=== PATIENT | female | born 1995 | race Caucasian/White ===

== ENCOUNTER → 2023-01-16 | Outpatient (CLI) | payer BC ==
--- NOTE | 2023-01-16 16:35 | Diagnostic Imaging Report ---
PROCEDURE: CT neck soft tissue without contrast. TECHNIQUE: Multiple contiguous axial images were obtained through the neck without the use of intravenous contrast. Auto Exposure Controls were utilized during the CT exam to meet ALARA standards for radiation dose reduction. INDICATION: Strep throat. Throat pain. Concern for left tonsillar abscess. COMPARISON: None. FINDINGS: There is soft tissue fullness within the left tonsillar bed. No organized fluid collection is identified. There is mild mass effect on the airway without evidence of airway compromise. No prevertebral or retropharyngeal fluid collections. Reactive cervical lymphadenopathy is seen bilaterally. The parotid, submandibular and thyroid gland are unremarkable. The visualized lung apices are clear. Visualized orbital contents are unremarkable. The visualized paranasal sinuses are clear. The mastoids and middle ears are clear. No acute osseous abnormality in the cervical spine. IMPRESSION: 1. Findings consistent with tonsillitis on the left. No well-formed fluid collection is seen to suggest abscess. Recommend continued close follow-up. 2. Reactive cervical lymphadenopathy bilaterally. Dictated by: Dictated on workstation # [id number]
== END ==
LOC: RAD 16:11
PROVIDERS: ATTEND Family Medicine
DX: J36 Peritonsillar abscess (principal); R59.0 Localized enlarged lymph nodes
CPT/HCPCS: 70490

== ENCOUNTER 2023-03-31 11:09 | Emergency (ER) | payer BC ==
[~2023-03-31] VITALS: Ht 177.8 cm; Wt 113.0 kg
[2023-03-31] MEDS ORDERED: MECLIZINE 25 MG (ANTIVERT) TAB PO ONE (11:30)
--- NOTE | 2023-03-31 11:34 | ED General ---
General Chief Complaint: General Problems/Pain Stated Complaint: LIGHTHEADED | DIZZY | NAUSEA Source of Information: Patient Exam Limitations: No Limitations History of Present Illness Date Seen by Provider: March 31, 2023 Time Seen by Provider: 11:32 Initial Comments Patient is a 27-year-old female who presents to the ED with dizziness, lightheadedness. This started few hours ago. Patient states she drank near a 16 ounce of iced coffee. Started feeling dizzy lightheaded initially felt like the room was spinning. Appears to be worse when she stands. She did attempt to eat a granola bar with no improvement. She felt nauseous. Similar episodes in the past after drinking coffee typically resolves fairly quick after eating. She did not eat prior. Menstrual cycle stopped yesterday. She denies chest pain, shortness of breath, cough, vomiting, diarrhea, [place] pain, unilateral muscle weakness of center changes, visual loss, ear pain, sore throat, fever, dysuria, hematuria Allergies and Home Medications Allergies Coded Allergies: No Known Drug Allergies (Unverified , 03/31/23) Patient Home Medication List Home Medication List Reviewed: Yes Review of Systems Review of Systems Constitutional: No chills, No diaphoresis, No fever; malaise, weakness EENTM: No ear pain, No blurred vision, No double vision, No mouth pain, No mouth swelling, No throat pain, No throat swelling Respiratory: No cough, No dyspnea on exertion, No short of breath Cardiovascular: No chest pain, No edema Gastrointestinal: No abdominal pain, No diarrhea; nausea; No vomiting Genitourinary: No decreased output, No discharge, No dysuria, No frequency Musculoskeletal: No back pain, No joint pain Skin: No change in color, No change in hair/nails All Other Systems Reviewed Negative Unless Noted: Yes Past Deribko-Xclona-Zaojzb Hx Patient Social History Tobacco Use?: No Use of E-Cig and/or Vaping dev: No Substance use?: No Alcohol Use?: Yes Alcohol Frequency: Couple times a week Pt feels they are or have been: No Immunizations Up To Date Influenza Vaccine Up-to-Date: Yes; Up-to-Date First/Initial COVID19 Vaccinat: X2 Second COVID19 Vaccination Nam: X2 Past Medical History Surgery/Hospitalization HX: DENIES Physical Exam Vital Signs Vital Signs - First Documented 03/31/23 11:18 Temp 36.8 Pulse 90 Resp 18 B/P (MAP) 142/84 (103) Pulse Ox 99 O2 Delivery Room Air Capillary Refill : Height, Weight, BMI Height: '" Weight: lbs. oz. kg; BMI Method: General Appearance: No Apparent Distress, WD/WN Eyes: Bilateral Eye Normal Inspection, Bilateral Eye PERRL, Bilateral Eye EOMI, Bilateral Eye Abnormal EOM HEENT: PERRL/EOMI, TMs Normal, Normal ENT Inspection, Pharynx Normal Neck: Full Range of Motion, Normal Inspection, Non Tender, Supple Respiratory: Chest Non Tender, Lungs Clear, Normal Breath Sounds, No Accessory Muscle Use, No Respiratory Distress Cardiovascular: Regular Rate, Rhythm, No Edema, No Gallop, No JVD Gastrointestinal: Normal Bowel Sounds, No Organomegaly Back: Normal Inspection, No CVA Tenderness, No Vertebral Tenderness Extremity: Normal Capillary Refill, Normal Inspection, Normal Range of Motion, Non Tender Neurologic/Psychiatric: Alert, Oriented x3, No Motor/Sensory Deficits, Normal Mood/Affect, home manager II-XII Norm as Tested Skin: Normal Color, Warm/Dry Progress/Results/Core Measures Suspected Sepsis SIRS Temperature: Pulse: Respiratory Rate: Laboratory Tests 03/31/23 11:50: White Blood Count 7.3 Blood Pressure / Mean: Laboratory Tests 03/31/23 11:50: Creatinine 0.74, Platelet Count 331, Total Bilirubin 0.4 Results/Orders Lab Results Laboratory Tests Test 03/31/23 11:34 03/31/23 11:50 Range/Units Urine Color YELLOW Urine Clarity CLEAR Urine pH 6.0 5-9 Urine Specific [place] <=1.005 1.016-1.022 Urine Protein NEGATIVE NEGATIVE Urine Glucose (UA) NEGATIVE NEGATIVE Urine Ketones NEGATIVE NEGATIVE Urine Nitrite NEGATIVE NEGATIVE Urine Bilirubin NEGATIVE NEGATIVE Urine Urobilinogen 0.2 < = 1.0 MG/DL Urine Leukocyte Esterase NEGATIVE NEGATIVE Urine RBC (Auto) TRACE-I H NEGATIVE Urine RBC NONE /HPF Urine WBC NONE /HPF Urine Squamous Epithelial Cells 2-5 /HPF Urine Crystals NONE /LPF Urine Bacteria NEGATIVE /HPF Urine Casts NONE /LPF Urine Mucus NEGATIVE /LPF Urine Culture Indicated NO Urine Test NEGATIVE NEGATIVE White Blood Count 7.3 4.3-11.0 10^3/uL Red Blood Count 4.98 3.80-5.11 10^6/uL Hemoglobin 13.8 11.5-16.0 g/dL Hematocrit 41 35-52 % Mean Corpuscular Volume 82 80-99 fL Mean Corpuscular Hemoglobin 28 25-34 pg Mean Corpuscular Hemoglobin Concent 34 32-36 g/dL Red Cell Distribution Width 13.0 10.0-14.5 % Platelet Count 331 130-400 10^3/uL Mean Platelet Volume 8.8 L 9.0-12.2 fL Immature Granulocyte % (Auto) 0 % Neutrophils (%) (Auto) 63 42-75 % Lymphocytes (%) (Auto) 28 12-44 % Monocytes (%) (Auto) 5 0-12 % Eosinophils (%) (Auto) 4 0-10 % Basophils (%) (Auto) 1 0-10 % Neutrophils # (Auto) 4.6 1.8-7.8 10^3/uL Lymphocytes # (Auto) 2.1 1.0-4.0 10^3/uL Monocytes # (Auto) 0.3 0.0-1.0 10^3/uL Eosinophils # (Auto) 0.3 0.0-0.3 10^3/uL Basophils # (Auto) 0.0 0.0-0.1 10^3/uL Immature Granulocyte # (Auto) 0.0 0.0-0.1 10^3/uL Sodium Level 138 135-145 MMOL/L Potassium Level 4.0 3.6-5.0 MMOL/L Chloride Level 106 98-107 MMOL/L Carbon Dioxide Level 20 L 21-32 MMOL/L Anion Gap 12 5-14 MMOL/L Blood Urea Nitrogen 10 7-18 MG/DL Creatinine 0.74 0.60-1.30 MG/DL Estimat Glomerular Filtration Rate 113 BUN/Creatinine Ratio 14 Glucose Level 107 H 70-105 MG/DL Calcium Level 9.7 8.5-10.1 MG/DL Corrected Calcium 9.3 8.5-10.1 MG/DL Total Bilirubin 0.4 0.1-1.0 MG/DL Aspartate Amino Transf (AST/SGOT) 23 5-34 U/L Alanine Aminotransferase (ALT/SGPT) 35 0-55 U/L Alkaline Phosphatase 59 40-136 U/L Total Protein 7.9 6.4-8.2 GM/DL Albumin 4.5 3.2-4.5 GM/DL My Orders Orders - LEAVITT,BEAR A PA Cbc With Automated Diff (03/31/23 11:28) Comprehensive Metabolic Panel (03/31/23 11:28) Ua Culture If Indicated (03/31/23 11:28) Hcg,Qualitative Urine (03/31/23 11:28) Meclizine Tablet (Antivert Tablet) (03/31/23 11:30) Medications Given in ED Current Medications Medications Dose Ordered Sig/La Route Start Time Stop Time Status Last Admin Dose Admin Meclizine HCl 25 mg ONCE ONCE PO 03/31/23 11:30 03/31/23 11:31 DC 03/31/23 11:40 25 MG Vital Signs/I&O 03/31/23 03/31/23 11:18 13:39 Temp 36.8 36.8 Pulse 90 84 Resp 18 18 B/P (MAP) 142/84 (103) 130/74 Pulse Ox 99 100 O2 Delivery Room Air Room Air Capillary Refill : Departure Communication (PCP) Patient on arrival complaining of dizziness, lightheaded and nausea. Differential diagnosis of vertigo, hypoglycemia, hyperglycemia, excessive c affeine intake, viral syndrome. She report recent URI symptoms. Currently on on Augmentin prophylactically for strep throat. She states that several of her children were diagnosed with strep throat. She did take a dose this morning and drank a 16 ounce cold iced coffee. She does drink coffee daily. Started feeling dizzy, lightheaded and nauseous. Ate a granola bar without much improvement. she denies of any chest pain, cough, shortness of breath, abdominal pain or vomiting. On arrival neurologically intact. No focal neural deficits. Stable vital signs. She states she felt hot. Due to current complaint CBC, CMP and urinalysis was ordered. Negative for . Urinalysis negative for infection. CBC, CMP grossly unremarkable. Blood sugar 107. Patient was observed here in the ED. She was given meclizine for the dizziness. No evidence of nystagmus. Patient symptoms appear to be improving. She was able to tolerate p.o. fluids at bedside after observation. Suspect that this is likely related to not eating and drinking a full 16 ounce cup of cold coffee. Potentially secondary to increased caffeine intake. Possible multifactorial with the Augmentin. If continue getting sick with the Augmentin recommend talking to your primary care physician to switch antibiotics. Discussed eating before drinking the coffee. Limit intake. If any worsening symptoms return back to ED. No known cardiac history. No strokelike symptoms. Return precaution were discussed Impression Primary Impression: Lightheadedness Disposition: 01 HOME, SELF-CARE Condition: Stable Departure-Patient Inst. Decision time for Depature: 13:17 Referrals: ROLDAN DILLON MD (PCP/Family) Primary Care Physician Patient Instructions: Dizziness, Adult ED Add. Discharge Instructions: Continue monitoring symptoms at home. Recommend drinking fluids. Recommend eating small throughout the rest of the day. If continue worsening symptoms may consider follow-up with your primary or return back to ED. If related to the Augmentin recommend contacting your PCP All discharge instructions reviewed with patient and/or family. Voiced understanding. BEAR LEAVITT March 31, 2023 11:34
[2023-03-31 11:40] LABS: BILIRUBIN,URINE NEGATIVE (NEGATIVE); CLARITY,URINE CLEAR; COLOR,URINE YELLOW; GLUCOSE, URINE (UA) NEGATIVE (NEGATIVE); KETONES,URINE NEGATIVE (NEGATIVE); LEUKOCYTE ESTERASE ,URINE NEGATIVE (NEGATIVE); NITRITE,URINE NEGATIVE (NEGATIVE); PROTEIN,URINE NEGATIVE (NEGATIVE)
[2023-03-31 11:46] LABS: BACTERIA,URINE NEGATIVE /HPF
[2023-03-31 12:15] LABS: BASOPHILS % (AUTO) 1 % (0-10); EOSINOPHILS # (AUTO) 0.3 10^3/uL (0.0-0.3); EOSINOPHILS % (AUTO) 4 % (0-10); HEMATOCRIT 41 % (35-52); HEMOGLOBIN 13.8 g/dL (11.5-16.0); LYMPHOCYTES # (AUTO) 2.1 10^3/uL (1.0-4.0); LYMPHOCYTES % (AUTO) 28 % (12-44); MEAN CORPUSCULAR HEMOGLOBIN 28 pg (25-34); MEAN CORPUSCULAR HGB CONC 34 g/dL (32-36); MEAN CORPUSCULAR VOLUME 82 fL (80-99); MEAN PLATELET VOLUME 8.8 fL (9.0-12.2); MONOCYTES # (AUTO) 0.3 10^3/uL (0.0-1.0); MONOCYTES % (AUTO) 5 % (0-12); NEUTROPHILS # (AUTO) 4.6 10^3/uL (1.8-7.8); NEUTROPHILS % (AUTO) 63 % (42-75); PLATELET COUNT 331 10^3/uL (130-400); WHITE BLOOD COUNT 7.3 10^3/uL (4.3-11.0)
[2023-03-31 12:17] LABS: ALBUMIN 4.5 GM/DL (3.2-4.5)
[2023-03-31 12:19] LABS: CALCIUM 9.7 MG/DL (8.5-10.1)
[2023-03-31 12:20] LABS: TOTAL PROTEIN 7.9 GM/DL (6.4-8.2)
[2023-03-31 12:22] LABS: BILIRUBIN,TOTAL 0.4 MG/DL (0.1-1.0)
[2023-03-31 12:23] LABS: CREATININE SERUM 0.74 MG/DL (0.60-1.30)
[2023-03-31 13:39] VITALS: BP 130/74
== END 2023-03-31 13:40 | disposition home or self-care (01) ==
LOC: EDUNIT# 11:09 → ER 11:11
DX: R42 Dizziness and giddiness (principal); R11.0 Nausea
CPT/HCPCS: 36415; 80053; 81000; 84703; 85025; 99283